=== PATIENT | male | born 1970 | race Caucasian/White ===

== ENCOUNTER 2016-12-31 07:32 | Emergency (ER) | payer OTHER ==
[~2016-12-31] VITALS: Ht 182.9 cm; Wt 83.3 kg
[2016-12-31] MEDS ORDERED: SODIUM CHLORIDE 0.9% 1,000ML IVBOLUS ONE (08:00)
[2016-12-31] MEDS ORDERED: SODIUM CHLORIDE FLUSH 10ML SYR IVF ONE (08:00)
[2016-12-31] MEDS ORDERED: ONDANSETRON 2MG/ML, 2ML IVPush ONE (08:00)
[2016-12-31] MEDS ORDERED: FAMOTIDINE 20 MG/2 ML IVP ONE (08:00)
[2016-12-31] MEDS ORDERED: MAALOX/HYOSCYAMINE/LIDOCAINE 45 ML BOTTLE PO ONE (08:00)
[2016-12-31 08:25] LABS: ASPARTATE AMINO TRANSFERASE 35 U/L (15-37); BLOOD UREA NITROGEN 16 mg/dL (7-18)
[2016-12-31] MEDS ORDERED: FAMOTIDINE 20 MG/2 ML ONE (08:26)
[2016-12-31] MEDS ORDERED: ONDANSETRON 2MG/ML, 2ML ONE (08:26)
[2016-12-31] MEDS ORDERED: MAALOX/HYOSCYAMINE/LIDOCAINE 45 ML BOTTLE ONE (08:26)
[2016-12-31 08:34] LABS: IS PT STATUS REG ER OR PRE ER? YES
[2016-12-31] MEDS ORDERED: NITROGLYCERIN SINGLE TAB 0.4 MG SL ONE ×2 (09:06→09:30)
[2016-12-31 09:21] VITALS: BP 118/75
== END 2016-12-31 09:57 | disposition home or self-care (01) ==
LOC: ED 08:04
DX: K21.0 Gastro-esophageal reflux disease with esophagitis (principal); K29.70 Gastritis, unspecified, without bleeding; R07.89 Other chest pain
CPT/HCPCS: 36415; 74022; 80053; 83690; 84484; 85025; 85610; 85730; 93005; 96361; 96374; 96375; 99285; J2405; J7030; S0028